=== PATIENT | female | born 1945 | race Caucasian/White ===

== ENCOUNTER 2020-01-09 08:44 | Emergency (ER) | payer MEDICARE, OTHER, SELFPAY ==
[2020-01-09 08:50] VITALS: BP 97/68; PULSE 86; RESP 18; TEMP 36.6; O2SAT 98
[2020-01-09] MEDS: LIDOCAINE HCL 1% LOCAL INJ 20 ML VIAL (09:03)
[2020-01-09] MEDS: TETANUS,DIPHTHERIA,AC PERTUSSIS ADULT 0.5 ML (ADACEL) IM (09:12)
[2020-01-09] MEDS: NEOMYCIN/POLYMYXIN/BACITRACIN OINTMENT PACKET 3 PACKET (09:30)
--- NOTE | 2020-01-09 09:38 | ED.WOUNDLAC ---
HPI - Wound/Laceration General Chief Complaint: Wound/Laceration Stated Complaint: Cut Leg Source: patient Mode of arrival: ambulatory Limitations: no limitations History of Present Illness HPI narrative: this is a 74-year-old female that presents with a U shaped laceration on her anterior surface of her right lower leg that occurred earlier this morning when she fell and hit her leg for feeding her box turtles the area is approximately 25cm in length that is U shaped it is gaping but has a good pedal pulse with some no nerves or tendons exposed has good range of motion in her lower foot with no numbness or tingling and can wiggle her toes and her leg. Onset (ago): hour(s) Extremity Location: Right: lower leg ( Laceration) Body four view annotation: 1. U shaped laceration 25cm and gaping Context: accidental Associated symptoms: pain Treatments prior to arrival: bandage Related Data Allergies Allergy/AdvReac Type Severity Reaction Status Date / Time No Known Allergies Allergy Verified 01/09/20 08:54 Review of Systems Review of Systems: All systems reviewed & are unremarkable except as noted in HPI and below [facility] Past Medical History Medical History Patient denies medical problems Exam Const: General: no acute distress and alert Orientation/consciousness: patient oriented x3 HENMT: Head: normal to inspection Eyes: Conjunctivae: conjunctivae normal Pupils: Equal, round and reactive pupils present Neck: Neck: normal visual inspection Chest: Chest palpation & inspection: normal inspection of the chest Resp: Effort & Inspection: normal respiratory effort Auscultation: clear to auscultation bilaterally Cardio: Rate: regular rate Rhythm: regular rhythm GI: GI Palp: Yes Soft to palpation Skin: Wounds: wounds noted ( right lower anterior leg with a U shaped laceration) Neuro: General: patient oriented x3 and moves all extremities Extrem: General: normal to inspection Psych: Mental Status: mental status grossly normal Course Course Emergency Course: patient informed of procedure with some lidocaine administered the area was prepped and cleaned and there was a 25cm you shaped laceration was gaping used sutures to close the the laceration patient tolerated procedure well 1% lidocaine was administered and patient had minimal amount of pain and minimal amount of bleeding. Vital Signs Vital signs: Vital Signs Temperature 36.6 C 01/09/20 08:50 Pulse Rate 86 01/09/20 08:50 Respiratory Rate 18 01/09/20 08:50 Blood Pressure 97/68 L 01/09/20 08:50 Pulse Oximetry 98 01/09/20 08:50 Temperature 36.6 C 01/09/20 08:50 Pulse Rate 86 01/09/20 08:50 Respiratory Rate 18 01/09/20 08:50 Blood Pressure 97/68 L 01/09/20 08:50 Pulse Oximetry 98 01/09/20 08:50 Procedures Laceration Laceration 1: Date: 01/09/20 Time: 09:43 Site: lower extremity Side (If applicable): right Size (cm): 25 Description: other (U shaped) Depth: simple, single layer Local Anesthetic: lidocaine 1% Amount of anesthesia used (mL): 10 Pre-repair: wound explored and irrigated extensively ====== Skin Level ====== Skin layer closed with: vicryl Size (cm): 3-0 Number of sutures: 28 Technique: simple, interrupted ====== Subcutaneous Layer ====== ====== Muscle Layer ====== ====== Tendon Layer ====== Critical Care Time Critical Care Time Critical Care Time: No Discharge Plan Discharge Clinical Impression: Laceration Patient Disposition: Home, Self-Care Condition: Stable Instructions: Antibiotic Form, Care For Your Stitches (ED), Laceration (ED) Additional Instructions: Follow-up with primary care physician for suture removal in 10 days, take medicine as prescribed. Prescriptions: New amoxicillin-pot clavulanate [
[2020-01-09 09:47] VITALS: BP 132/78; PULSE 82; RESP 18; TEMP 36.6; O2SAT 99
== END 2020-01-09 09:52 | disposition home or self-care (01) ==
PROVIDERS: Emergency Provider Emergency Medicine
DX: S81.811A Laceration without foreign body, right lower leg, initial encounter (principal); W19.XXXA Unspecified fall, initial encounter
CPT/HCPCS: 12006; 90471; 90715; 99282; 99283

== ENCOUNTER 2020-05-02 07:16 | Outpatient (CLI) | payer MEDICARE, OTHER, SELFPAY ==
--- NOTE | ~2020-05-02 | MM_ITS ---
EXAMINATION: MM screening makenzie BI w hetal HISTORY: Screening TECHNIQUE: Craniocaudal and mediolateral oblique 3-D tomosynthesis images were obtained and synthetic 2-D images were generated. CAD analysis was submitted and interpreted. COMPARISON: Comparison to multiple prior studies sequentially, with oldest reviewed study dated 07/2017. BREAST PARENCHYMAL COMPOSITION: There are scattered areas of fibroglandular density. FINDINGS: There is no evidence of suspicious mass, calcification, or architectural distortion to sugg est malignancy in either breast. There has been no suspicious interval change. IMPRESSION: 1. No mammographic evidence of malignancy. 2. Recommend routine screening mammography in one year. BI-RADS Category 1: Negative Reviewed, dictated and finalized at location A. OCK MAKER
[2020-05-02 08:09] LABS: Alanine Aminotransferase 24 U/L (14-59); Alkaline Phosphatase 84 U/L (46-116); Anion Gap 10 mmol/L (8-16); Aspartate Amino Transferase 16 U/L (15-37); Bilirubin,Total 0.3 mg/dL (0.00-1.00); Blood Urea Nitrogen 16 mg/dL (7-18); Calcium 8.8 mg/dL (8.5-10.1); Carbon Dioxide 27 mmol/L (21-32); Chloride 106 mmol/L (98-108); Cholesterol 228 mg/dL (0-200); Estimated Glomerular Filt Rate > 60; Glucose 94 mg/dL (70-99); HDL Direct 63 mg/dL (40-60); LDL Cholesterol Calculated 147 mg/dL (<130); Osmolality Calculated 297 mOsm/kg (285-295); Potassium 4.4 mmol/L (3.5-5.1); Sodium 143 mmol/L (136-145); Total Protein 7.1 g/dL (6.4-8.2); Triglycerides 90 mg/dL (0-150)
== END 2020-05-02 07:17 | disposition home or self-care (01) ==
PROVIDERS: PCP Family Medicine; Visit Provider Family Medicine
DX: Z12.31 Encounter for screening mammogram for malignant neoplasm of breast (principal); E78.2 Mixed hyperlipidemia
CPT/HCPCS: 36415; 77063; 77067; 80053; 80061

== ENCOUNTER 2021-05-08 07:18 | Outpatient (CLI) | payer MEDICARE, OTHER, SELFPAY ==
--- NOTE | ~2021-05-08 | MM_ITS ---
EXAMINATION: MM screening makenzie BI w hetal HISTORY: Screening mammogram TECHNIQUE: Craniocaudal and mediolateral oblique 3-D tomosynthesis images were obtained and synthetic 2-D images were generated. CAD analysis was submitted and interpreted. COMPARISON: 05/02/2020, 03/2019, 03/31/2018 bilateral screening mammogram examinations BREAST PARENCHYMAL COMPOSITION: There are scattered areas of fibroglandular density. FINDINGS: There is no evidence of suspicious mass, calcification, or architectural distortion to sugg est malignancy in either breast. There has been no suspicious interval change. IMPRESSION: 1. No mammographic evidence of malignancy. 2. Recommend routine screening mammography in one year. BI-RADS Category 1: Negative Reviewed, dictated and finalized at location A. AN BPM DEVELOPER
== END 2021-05-08 07:19 | disposition home or self-care (01) ==
LOC: CHSIMG 07:19
PROVIDERS: PCP Family Medicine; Visit Provider Family Medicine
DX: Z12.31 Encounter for screening mammogram for malignant neoplasm of breast (principal)
CPT/HCPCS: 77063; 77067

== ENCOUNTER 2021-06-05 07:33 | Outpatient (CLI) | payer MEDICARE, SELFPAY ==
[2021-06-05 09:02] LABS: Alanine Aminotransferase 20 U/L (14-59); Albumin Level 3.9 g/dL (3.4-5.0); Alkaline Phosphatase 87 U/L (46-116); Anion Gap 8 mmol/L (8-16); Aspartate Amino Transferase 14 U/L (15-37); Bilirubin,Total 0.4 mg/dL (0.00-1.00); Blood Urea Nitrogen 15 mg/dL (7-18); Calcium 8.9 mg/dL (8.5-10.1); Carbon Dioxide 30 mmol/L (21-32); Chloride 105 mmol/L (98-108); Cholesterol 156 mg/dL (0-200); Estimated Glomerular Filt Rate > 60; Glucose 94 mg/dL (70-99); HDL Direct 63 mg/dL (40-60); LDL Cholesterol Calculated 79 mg/dL (<130); Osmolality Calculated 296 mOsm/kg (285-295); Potassium 4.6 mmol/L (3.5-5.1); Sodium 143 mmol/L (136-145); Total Protein 7.2 g/dL (6.4-8.2); Triglycerides 70 mg/dL (0-150)
== END 2021-06-05 07:34 | disposition home or self-care (01) ==
LOC: CHSLAB 07:36
PROVIDERS: PCP Family Medicine; Visit Provider Family Medicine
DX: E78.2 Mixed hyperlipidemia (principal)
CPT/HCPCS: 36415; 80053; 80061

== ENCOUNTER 2022-05-15 07:57 | Outpatient (CLI) | payer MEDICARE, OTHER, SELFPAY ==
--- NOTE | ~2022-05-15 | MM_ITS ---
EXAMINATION: MM screening makenzie BI w hetal HISTORY: Screening TECHNIQUE: Craniocaudal and mediolateral oblique 3-D tomosynthesis images were obtained and synthetic 2-D images were generated. CAD analysis was submitted and interpreted. COMPARISON: Comparison to multiple prior studies sequentially, with oldest reviewed study dated 07/2017. BREAST PARENCHYMAL COMPOSITION: There are scattered areas of fibroglandular density. FINDINGS: There is no evidence of suspicious mass, calcification, or architectural distortion to sugg est malignancy in either breast. There has been no suspicious interval change. IMPRESSION: 1. No mammographic evidence of malignancy. 2. Recommend routine screening mammography in one year. BI-RADS Category 1: Negative Reviewed, dictated and finalized at location A. Y BLENDER
== END 2022-05-15 07:58 | disposition home or self-care (01) ==
LOC: CHSIMG 07:58
PROVIDERS: PCP Family Medicine; Visit Provider Family Medicine
DX: Z12.31 Encounter for screening mammogram for malignant neoplasm of breast (principal)
CPT/HCPCS: 77063; 77067

== ENCOUNTER 2022-06-08 07:31 | Outpatient (CLI) | payer MEDICARE, SELFPAY ==
[2022-06-08 08:16] LABS: Alanine Aminotransferase 19 U/L (14-59); Albumin Level 3.9 g/dL (3.4-5.0); Alkaline Phosphatase 71 U/L (46-116); Anion Gap 5 mmol/L (8-16); Aspartate Amino Transferase 13 U/L (15-37); Bilirubin,Total 0.5 mg/dL (0.00-1.00); Blood Urea Nitrogen 17 mg/dL (7-18); Calcium 8.5 mg/dL (8.5-10.1); Carbon Dioxide 31 mmol/L (21-32); Chloride 110 mmol/L (98-108); Cholesterol 152 mg/dL (0-200); Estimated Glomerular Filt Rate > 60; Glucose 91 mg/dL (70-99); HDL Direct 70 mg/dL (40-60); LDL Cholesterol Calculated 70 mg/dL (<130); Osmolality Calculated 303 mOsm/kg (285-295); Potassium 4.6 mmol/L (3.5-5.1); Sodium 146 mmol/L (136-145); Total Protein 6.8 g/dL (6.4-8.2); Triglycerides 60 mg/dL (0-150)
== END 2022-06-08 07:32 | disposition home or self-care (01) ==
LOC: CHSLAB 07:33
PROVIDERS: PCP Family Medicine; Visit Provider Family Medicine
DX: E78.2 Mixed hyperlipidemia (principal)
CPT/HCPCS: 36415; 80053; 80061

== ENCOUNTER 2023-08-14 07:26 | Outpatient (CLI) | payer MEDICARE, SELFPAY ==
[2023-08-14 08:26] LABS: Alanine Aminotransferase 23 U/L (14-59); Albumin Level 3.9 g/dL (3.4-5.0); Alkaline Phosphatase 67 U/L (46-116); Anion Gap 9 mmol/L (8-16); Aspartate Amino Transferase 12 U/L (15-37); Bilirubin,Total 0.5 mg/dL (0.00-1.00); Blood Urea Nitrogen 15 mg/dL (7-18); Calcium 8.5 mg/dL (8.5-10.1); Carbon Dioxide 28 mmol/L (21-32); Chloride 104 mmol/L (98-108); Cholesterol 150 mg/dL (0-200); Estimated Glomerular Filt Rate > 60; Glucose 92 mg/dL (70-99); HDL Direct 69 mg/dL (40-60); LDL Cholesterol Calculated 70 mg/dL (<130); Osmolality Calculated 292 mOsm/kg (285-295); Potassium 4.1 mmol/L (3.5-5.1); Sodium 141 mmol/L (136-145); Total Protein 6.9 g/dL (6.4-8.2); Triglycerides 54 mg/dL (0-150)
== END 2023-08-14 07:27 | disposition home or self-care (01) ==
LOC: CHSLAB 07:29
PROVIDERS: PCP Family Medicine; Visit Provider Family Medicine
DX: E78.2 Mixed hyperlipidemia (principal)
CPT/HCPCS: 36415; 80053; 80061

== ENCOUNTER 2023-08-30 07:52 | Outpatient (CLI) | payer MEDICARE, OTHER, SELFPAY ==
--- NOTE | ~2023-08-30 | MM_ITS ---
EXAMINATION: MM screening makenzie BI w hetal HISTORY: Screening TECHNIQUE: Craniocaudal and mediolateral oblique 3-D tomosynthesis images were obtained and synthetic 2-D images were generated. CAD analysis was submitted and interpreted. COMPARISON: Comparison to multiple prior studies sequentially, with oldest reviewed study dated 07/2017. BREAST PARENCHYMAL COMPOSITION: Not dense: There are scattered areas of fibroglandular density. FINDINGS: There is no evidence of suspicious mass, calcification, or architectural distortion to sugg est malignancy in either breast. There has been no suspicious interval change. IMPRESSION: 1. No mammographic evidence of malignancy. 2. Recommend routine screening mammography in one year. BI-RADS Category 1: Negative Reviewed, dictated and finalized at location A. R BLENDER
== END 2023-08-30 07:53 | disposition home or self-care (01) ==
LOC: CHSIMG 07:54
PROVIDERS: PCP Family Medicine; Visit Provider Family Medicine
DX: Z12.31 Encounter for screening mammogram for malignant neoplasm of breast (principal)
CPT/HCPCS: 77063; 77067

== ENCOUNTER 2024-09-29 08:09 | Outpatient (CLI) | payer MEDICARE, OTHER, SELFPAY ==
--- NOTE | ~2024-09-29 | MM_ITS ---
EXAMINATION: MM screening makenzie BI w hetal HISTORY: Screening TECHNIQUE: Craniocaudal and mediolateral oblique 3-D tomosynthesis images were obtained and synthetic 2-D images were generated. CAD analysis was submitted and interpreted. COMPARISON: Comparison to multiple prior studies sequentially, with oldest reviewed study dated 07/2017. BREAST PARENCHYMAL COMPOSITION: Dense: The breasts are heterogeneously dense, which may obscure small masses FINDINGS: There is no evidence of suspicious mass, calcification, or architectural distortion to sugg est malignancy in either breast. There has been no suspicious interval change. IMPRESSION: 1. No mammographic evidence of malignancy. 2. Recommend routine screening mammography in one year. BI-RADS Category 1: Negative Reviewed, dictated and finalized at location A.
--- NOTE | ~2024-09-29 | DEXA_ITS ---
Bone Density Report Name: BLANK FORD Age: 78 Sex: Female Ethnicity: White Date of : 1945 Indication: postmenopausal; screening for osteoporosis; height loss; prior fracture; Referring Provider: KAREN BRAGG Study: Bone densitometry was performed. Exam Date: September 29, 2024 Accession number: [id number] Bone Density: Region BMD T-score Z-score Classification AP Spine(L1-L4) 0.949 -0.9 1.7 Normal Femoral Neck (Right) 0.524 -2.9 -0.7 Osteoporosis Total Hip (Right) 0.760 -1.5 0.5 Osteopenia World Health Organization criteria for BMD impression classify patients as: Normal (T-score at or above -1.0), Osteopenia (T-score between -1.0 and -2.5), or Osteoporosis (T-score at or below -2.5). 10-year Fracture Risk: FRAX not reported because: Some T-score for Spine Total or Hip Total or Femoral Neck at or below -2.5 Prior hip or vertebral fracture Clinical Information Provided by Patient: Have had a previous hip or vertebral fracture Has had a low trauma fracture Has used the following medications: Vitamin D, Calcium Patient maximum height was 64 Menopause Age: 50 No regular weight bearing exercise Onset of menses at age 14 Number of children 3 Impression: The patient has established osteoporosis, based on the Right Femoral Neck T-score and the existence of a prior fracture. The patient has risk factors, including: previous fracture. Discussion: HIGH RISK OF FRACTURE. BONE DENSITY IS UNDESIRABLY LOW AT ONE OR MORE SKELETAL SITES, CONSISTENT WITH POSTMENOPAUSAL OSTEOPOROSIS. This patient's lowest T-score, in a patient who has previously fractured, meets the World Health Organization's (WHO) criteria for severe osteoporosis. In untreated patients, the risk of osteoporotic fracture increases approximately two-fold for each 1.0 SD decrease in T-score. Low bone density is not the only risk factor for fracture; also consider factors such as patient's age, frailty or poor health, risk of falling, risk of injury, previous osteoporotic fracture, family history of osteoporosis, cigarette smoking, low body weight, etc. Not everyone with low bone mineral density has osteoporosis; osteomalacia and other metabolic bone disorders should also be considered. Patients who have osteoporosis should be evaluated for specific diseases and conditions (secondary causes) that may cause or contribute to bone loss. The [place] [employer] Clinical Endocrinologists (AACE) and National Osteoporosis Foundation (NOF) recommend pharmacologic intervention for all postmenopausal women with a previous hip or vertebral fracture and a T-score in this range. The patient should follow a healthful lifestyle (good nutrition with adequate calcium and vitamin D, and appropriate weight-bearing exercise). Follow-Up: Consider a repeat BMD and Vertebral Fracture Assessment (VFA) exam in 2 years or sooner if medically necessary, to reassess this patient's status. Reported by: CYDNEY on 09/29/2024 8:50:00 AM. Reviewed, dictated and finalized at location A.
--- OUTSIDE RECORDS SUMMARY | 2024-09-29 08:13 | XMS_ITS | Encounter Summary ---
Author Organization [facility] Address [address] [place] [address] Phone Care Team Providers Care Resources Representative Name Role Phone Magdiel Shannon MD Primary Care Provider [phone] Encounter Details Date Type Department Care Team (Late st Contact Info) Description 06/22/2024 Lab Requisition [facility] [address] [place] [id number] Fran Gordon MD [address] [place] [address] Unspecified osteoarthritis, unspecified site Social History Tobacco Use Types Packs/Day Years Used Date Smoking Tobacco: Never Smokeless Tobacco: Never Alcohol Use Standard Drinks/Week Comments Yes 1 (1 standard drink = 0.6 oz pur e alcohol) Occasional glass of wine [facility] Utilities Answer Date Recorded In the past 12 months has [employer], gas, oil, or water [employer] threatened to shut off services in your home? No 06/09/2024 Social Connection and Isolat ion Panel [NHANES] Answer Date Recorded In a typical week, how many times do you talk on the phone with family, friends, or neighbors? More than three times a week 06/09/2024 How often do you get togethe r with friends or relatives? Twice a week 06/09/2024 How often do you attend [facility] or nondenominational services? More than 4 times per year 06/09/2024 Do you belong to any clubs o r organizations such as sikhism groups, unions, fraternal or athletic groups, or school groups? No 06/09/2024 How often do you attend meet ings of the clubs or organizations you belong to? Never 06/09/2024 Are you , , di vorced, , never , or living with a partner? 06/09/2024 AUDIT-C Answer Date Recorded Q1: How often do you have a drink containing alc ohol? Monthly or less 06/09/2024 Q2: How many drinks containi ng alcohol do you have on a typical day when you are drinking? 1 or 2 06/09/2024 Q3: How often do you have si x or more drinks on one occasion? Never 06/09/2024 Overall Financial Resource Strain (CARDIA) Answe r Date Recorded How hard is it for you to pa y for the very basics like food, housing, medical care, and heating? Not hard at all 06/09/2024 [facility] Occup[facility] ional [facility] - Occupational Stress Questionnaire Answer Date Recorded Do you feel stress - tense, restless, nervous, or anxious, or unable to sleep at night because your mind is troubled all the time - these days? Not at all 06/09/2024 Exercise Vital Sign Answer Date Recorde d On average, how many days pe r week do you engage in moderate to strenuous exercise (like a brisk walk)? 7 days 06/09/2024 On average, how many minutes do you engage in exercise at this level? 60 min 06/09/2024 Hunger Vital Sign Answer Date Recorded Within the past 12 months, y ou worried that your food would run out before you got the money to buy more. Never true 06/09/20 24 Within the past 12 months, t he food you bought just didn't last and you didn't have money to get more. Never true 06/09/2024 PRAPARE - Transportation Answer Date Re corded In the past 12 months, has l ack of transportation kept you from medical appointments or from getting medications? No 05/31 In the past 12 months, has l ack of transportation kept you from meetings, work, or from getting things needed for daily living? No 06/09/2024 Housing Stability Vital Sign Answer Connor e Recorded In the last 12 months, was t here a time when you were not able to pay the mortgage or rent on time? No 06/09/2024 In the past 12 months, how m any times have you moved where you were living? 1 06/09/2024 At any time in the past 12 m [facility], were you homeless or living in a senior living (including now)? No 06/09/2024 Sexually Active Control Partners Comments Not Currently Male Comments No Sex and Gender Information Value Date Recorded Sex Assigned at Not on file Legal Sex Female 10:11 PM CDT Gender Identity Not on file Sexual Orientation Not on file documented as of this encounter Plan of Treatment Not on file documented as of this encounter Procedures Procedure Name Priority Date/Time Associated Diagnosis Comments IRON,TRANSFERN,CALC.T IBC,%SAT Routine 06/22/2024 9:35 AM MANAGER PUBLISHING Unspecified osteoarthritis, unspecified site CBC WITH AUTO DIFFERENTIAL Routine 06/22/2024 9:35 AM MANAGER PUBLISHING Unspecified osteoarthritis, unspecified site VITAMIN B12 Routine 06/22/2024 9:35 AM MANAGER PUBLISHING Unspecified osteoarthritis, unspecified site RETICULOCYTE COUNT (RETIC) Routine 06/22/2024 9:35 AM MANAGER PUBLISHING Unspecified osteoarthritis, unspecified site FOLIC ACID (FOLATE) Routine 06/22/2024 9 :35 AM MANAGER PUBLISHING Unspecified osteoarthritis, unspecified site FERRITIN Routine 06/22/2024 9:35 AM MANAGER PUBLISHING Unspecified osteoarthritis, unspecified site COMPLETE BLOOD COUNT (CBC) WITH DIFF Routine 06/22/2024 9:35 AM MANAGER PUBLISHING Unspecified osteoarthritis, unspecified site documented in this encounter Results * (ABNORMAL) IRON,TRANSFERN,CALC.TIBC,%SAT (06/22/2024 9:35 AM MANAGER PUBLISHING) IRON 46 25 - 156 mcg/dL 06/22/2024 3:17 PM MANAGER PUBLISHING [facility] TRANSFERRIN 156(L) 173 - 360 mg/dL 06/22/2024 3:17 PM MANAGER PUBLISHING [facility] TIBC, CALCULATED 195(L) 265 - 497 mcg/dL 06/22/2024 3:17 PM [facility] % SATURATION * 24 15 - 62 % 06/22/2024 3:17 PM [facility] Blood No Phlebotomy Charged / Unknown 06/22/2024 9:35 AM MANAGER PUBLISHING 06/22/2024 11:55 AM MANAGER PUBLISHING us Frna Gordon MD CHEMISTRY ORDERABLES Final Resul t [facility] [place] [address] * (ABNORMAL) CBC WITH AUTO DIFFERENTIAL (06/22/2024 9:35 AM MANAGER PUBLISHING) WBC 10.97 4.00 - 12.00 10(3)/mcL 06/22/2024 11:58 AM [facility] RBC 2.58(L) 3.80 - 5.30 10(6)/mcL 06/22/2024 11:58 AM [facility] HEMOGLOBIN (HGB) 8.0(L) 12.0 - 15.8 g/dL 06/22/2024 11:58 AM [facility] HEMATOCRIT (HCT) 24.9(L) 36.0 - 47.0 % 06/22/2024 11:58 AM [facility] MCV 96.5(H) 82.0 - 96.0 fL 06/22/2024 11:58 AM [facility] MCH 31.0 26.0 - 34.0 pg 06/22/2024 11:58 AM [facility] MCHC 32.1 31.0 - 36.0 g/dL 06/22/2024 11:58 AM [facility] PLATELET COUNT 661(H) 140 - 440 10(3)/mcL 06/22/2024 11:58 AM [facility] RDW 16.8(H) 11.8 - 15.5 % 06/22/2024 11:58 AM [facility] MPV 8.7(L) 9.7 - 12.4 fL 06/22/2024 11:58 AM [facility] NEUTROPHILS 67.8 47.0 - 73.0 % 06/22/2024 11:58 AM [facility] LYMPHOCYTES 19.0 18.0 - 42.0 % 06/22/2024 11:58 AM [facility] MONOCYTES 8.5 4.0 - 12.0 % 06/22/2024 11:58 AM [facility] EOSINOPHILS 4.1 0.0 - 5.0 % 06/22/2024 11:58 AM [facility] BASOPHILS 0.6 0.0 - 1.0 % 06/22/2024 11:58 AM [facility] ABSOLUTE NEUTROPHILS 7.44 1.60 - 7.70 10(3)/[facility] 06/22/2024 11:58 AM [facility] ABSOLUTE LYMPHOCYTES 2.08 1.30 - 3.20 10(3)/[facility] 06/22/2024 11:58 AM [facility] ABSOLUTE MONOCYTES 0.93 0.20 - 1.00 10(3)/[facility] 06/22/2024 11:58 AM [facility] ABSOLUTE EOSINOPHIL 0.45(H) 0.00 - 0.40 10(3)/[facility] 06/22/2024 11:58 AM [facility] ABSOLUTE BASOPHILS 0.07 0.00 - 0.10 10(3)/[facility] 06/22/2024 11:58 AM [facility] NRBC PER 100 WBC 0 06/22/20 11:58 AM [facility] Blood No Phlebotomy Charged / Unknown 06/22/2024 9:35 AM [facility] 06/22/2024 11:55 AM [facility] us Fran Gordon MD HEMATOLOGY ORDERABLES Final Resu lt Performing Organization Address [facility] Co de Phone Number [facility] [place] [address] * (ABNORMAL) RETICULOCYTE COUNT (RETIC) (06/22/2024 9:35 AM MANAGER PUBLISHING) RETICULOCYTES 7.4(H) 0.5 - 2.0 % 06/22/2024 11:58 AM MANAGER PUBLISHING [facility] Blood No Phlebotomy Charged / Unknown 06/22/2024 9:35 AM MANAGER PUBLISHING 06/22/2024 11:55 AM MANAGER PUBLISHING us Fran Gordon MD HEMATOLOGY ORDERABLES Final Resu lt Performing Organization Address [facility] Co de Phone Number [facility] [address] [place] [address] * FOLIC ACID (FOLATE) (06/22/2024 9:35 AM MANAGER PUBLISHING) FOLATE 14.9 7.0 - 31.4 ng/mL 06/22/2024 12:53 PM MANAGER PUBLISHING [facility] Blood No Phlebotomy Charged / Unknown 06/22/2024 9:35 AM MANAGER PUBLISHING 06/22/2024 11:55 AM MANAGER PUBLISHING us Fran Gordon MD CHEMISTRY ORDERABLES Final Resul t Performing Organization Address [facility] Co de Phone Number [facility] [address] [place] [address] * (ABNORMAL) VITAMIN B12 (06/22/2024 9:35 AM MANAGER PUBLISHING) VITAMIN B12 826(H) 213 - 816 pg/mL 06/22/2024 12:53 PM MANAGER PUBLISHING [facility] Blood No Phlebotomy Charged / Unknown 06/22/2024 9:35 AM MANAGER PUBLISHING 06/22/2024 11:55 AM MANAGER PUBLISHING us Fran Gordon MD CHEMISTRY ORDERABLES Final Resul t Performing Organization Address [facility]/ZIP Co de Phone Number [facility] [address] [place] [address] * (ABNORMAL) FERRITIN (06/22/2024 9:35 AM MANAGER PUBLISHING) FERRITIN 300(H) 5 - 204 ng/mL 06/22/2024 12:37 PM MANAGER PUBLISHING [facility] Blood No Phlebotomy Charged / Unknown 06/22/2024 9:35 AM MANAGER PUBLISHING 06/22/2024 11:55 AM MANAGER PUBLISHING us Fran Gordon MD CHEMISTRY ORDERABLES Final Resul t Performing Organization Address [facility] Co de Phone Number [facility] [address] [place] [address] documented in this encounter Visit Diagnoses Diagnosis Unspecified osteoarthritis, unspecified site documented in this encounter Care Teams Resources Representative Relationship Specialty Start Date End Date Magdiel Shannon MD [address] [place] [address] PCP - General Family Medicine 06/10/24 documented as of this encounter
--- OUTSIDE RECORDS SUMMARY | 2024-09-29 08:13 | XMS_ITS | Clinical Summary ---
Author Organization [facility] Address [address] [place] [address] Phone Care Team Providers Care Assistant Prosecuting Attorney Name Role Phone Magdiel Shannon MD Primary Care Provider [phone] Allergies No known active allergies Medications atorvastatin (LIPITOR) 10 MG TabletIndicatio ns:Hypertriglyc eridemia Take 10 mg by mouth daily. Indications: High Amount of Triglycerides in the Blood Active Multivitamin-Mi nerals Tablet Take 1 Tablet by mouth daily. Active ALPRAZolam (Xanax) 0.25 MG TabletIndicatio ns:Anxiety Take 0.25 mg by mouth 2 times daily as needed for Anxiety. Indications: Feeling Anxious Active HYDROcodone-sudheer taminophen (NORCO) 5-325 MG TabletIndicatio ns:Moderate to Moderately Severe Pain Take 1 Tablet by mouth every 8 hours as needed for Moderate or more severe pain. Indications: Moderate to Moderately Severe Pain 20 Tablet 4 Active ondansetron (ZOFRAN-ODT) 4 MG TABLET DISPERSIBLE Take 1 Tablet by mouth every 6 hours as needed for Nausea - 1st line. 30 Tablet 4 Active naloxone HCl (Narcan) 4 MG/0.1ML Liquid 1 [place] by Nasal route as needed for Opioid Reversal. Administer in one nostril for symptoms of overdose (severe sleepiness, breathing problems, not responsive). Call 911. May repeat 1 spray in alternate nostril in 2-3 minutes if needed. 2 Each Active docusate sodium (COLACE) 100 MG Capsule Take 100 mg by mouth daily. Active Active Problems Problem Noted Date Diagnosed Date HLD (hyperlipidemia) 06/10/2024 Anxiety 06/10/2024 Arthritis 06/10/2024 Resolved Problems Problem Noted Date Diagnosed Date Resolved Date Leukocytosis (leucocytosis) 06/10/2024 06/12/2024 Closed displaced fracture of left femoral neck 06/10/2024 06/12/2024 Closed fracture of neck of left femur 06/09/2024 06/12/2024 Encounters Date Type Department Care Team Description 07/27/2024 9:30 AM TRAVEL OCCUPATIONAL THERAPIST Home Care Visit [address] [address] Nubia Pino, PT PT - OASIS DISCHARGE 07/25/2024 Home Care Visit [address] [address] Flakita Forman, RN CASE COMMUNICATION 07/24/2024 Home Care Visit [address] [address] Joaquina Le, OT OT - DISCHARGE SUMMARY 07/20/2024 9:30 AM TRAVEL OCCUPATIONAL THERAPIST Home Care Visit [address] [address] Cindy Benito, DISPLAY MAKER PT - HOME VISIT 07/20/2024 Travel 07/16/2024 9:30 AM TRAVEL OCCUPATIONAL THERAPIST Home Care Visit [address] [address] Cindy Benito, DISPLAY MAKER PT - HOME VISIT 07/16/2024 Travel 07/13/2024 11:00 AM TRAVEL OCCUPATIONAL THERAPIST Home Care Visit [address] [address] Nubia Pino, PT PT - REASSESSMENT 07/07/2024 1:00 PM TRAVEL OCCUPATIONAL THERAPIST Home Care Visit [address] [address] Cindy Benito, DISPLAY MAKER PT - HOME VISIT 07/07/2024 Travel 07/03/2024 2:30 PM TRAVEL OCCUPATIONAL THERAPIST [facility] [address] [place] [address] Geraldine Dixon OTA OT - DISCIPLINE DISCHARGE 07/03/2024 Travel 07/02/2024 9:00 AM TRAVEL OCCUPATIONAL THERAPIST [facility] [address] [place] [address] Cindy Benito PTA PT - HOME VISIT from Last 3 Months Family History Medical History Relation Name Comments Cancer Mother Cancer Paternal Grandfather Relation Name Status Comments Father Mother Paternal Grandfather Social History Tobacco Use Types Packs/Day Years Used Date Smoking Tobacco: Never Smokeless Tobacco: Never Tobacco Cessation:Counseling Given: No Alcohol Use Standard Drinks/Week Comments Yes 1 (1 standard drink = 0.6 oz pur e alcohol) Occasional glass of wine [facility] [employer] Answer Date Recorded In the past 12 months has th e electric, gas, oil, or water company threatened to shut off services in your [...] week 06/09/2024 How often do you attend chur ch or temple services? More than 4 times per year 06/09/2024 Do you belong to any clubs o r organizations such as hindu groups, unions, fraternal or athletic groups, or [...] and heating? Not hard at all 06/09/2024 [facility] of Occupat ional Health - Occupational Stress Questionnaire Answer Date Recorded [...] any time in the past 12 m [facility], were you homeless or living in a penitentiary (including now)? No 06/09/2024 Sexually Active Control Partners Comments Not Currently Male Comments No Sex and Gender Information Value Date Recorded Sex Assigned at Not on file Legal Sex Female 10:11 PM CDT Gender Identity Not on file Sexual Orientation Not on file Last Filed Vital Signs Vital Sign Reading Time Taken Comments Blood Pressure 124/76 07/27/2024 9:50 AM TRAVEL OCCUPATIONAL THERAPIST Pulse 88 07/27/2024 9:50 AM TRAVEL OCCUPATIONAL THERAPIST Temperature 36.7 C (98.1 F) 07/27/2024 9:50 AM TRAVEL OCCUPATIONAL THERAPIST Respiratory Rate 16 07/27/2024 9:50 AM TRAVEL OCCUPATIONAL THERAPIST Oxygen Saturation 98% 07/27/2024 9:50 AM TRAVEL OCCUPATIONAL THERAPIST Inhaled Oxygen Concentration - - Weight 72.6 kg (160 lb) 06/15/2024 2:58 PM TRAVEL OCCUPATIONAL THERAPIST Height 160 cm (5' 3 ) 06/16/2024 2:00 PM TRAVEL OCCUPATIONAL THERAPIST Body Mass Index 28.34 06/09/2024 5:11 PM TRAVEL OCCUPATIONAL THERAPIST Plan of Treatment Health Maintenance Due Date Last Done Comments DEXA Bone Density 1945 Hepatitis C Virus (HCV) Screening 1945 Zoster Immunization (1 of 2) 11/06/1995 Pneumococcal Immunization (50+ years) (2 of 2 - PCV) 04/02/2019 04/02/2018 Respiratory Syncytial Virus (RSV) Immunization (Adult) (1 - 1-dose 75+ series) 2020 Influenza Immunization (#1) 03/01/202408/2022, 06/11/2022, 04/20/2020, Additional history exists SARS-COV-2 Immunization ( season) 2024 04/02/2023, 03/25/2021, 09/09/2020, Additional history exists TdaP Immunization Completed 01/09/2020 Hepatitis B Immunization Aged Out No longer eligible based on patient's age to complete this topic Meningococcal Immunization (ACWY) Aged Out No longer eligible based on patient's age to complete this topic Rotavirus Immunization Aged Out No lo nger eligible based on patient's age to complete this topic Medical Devices Implanted Type Area Pinion Sorter Device Identifier Shelf Expiration Date Model / Serial / Lot Stem Fem 118mm Classic Short Neck Profemur Z Plasma 3 Hip - [id number] Implanted:Qty: 1 on 06/10/2024 by Fran Gordon MD at [facility] IMPLANT Left: Hip [employer] 06/06/2031 [id number] / [id number] / [id number] Implant Hip Acetabular Component Bipolar Gladiator 32 X 47mm - [id number] Implanted:Qty: 1 on 06/10/2024 by Fran Gordon MD at [facility] IMPLANT Left: Hip [employer] 12/01/2027 [id number] / [id number] / [id number] Microport Femoral Head 32mm, Neck Length: +3.5mm Long Implanted:Qty: 1 on 06/10/2024 by Fran Gordon MD at [facility] IMPLANT Left: Hip [employer] 02/14/2032 [id number] / [id number] / [id number] Insurance MEDICARE Member Subscriber Plan / Payer (Ef fective 2010-Present) Name:Roshni Bach Shayla Member ID:[id number] Relation to Subscriber:Self Name:Roshni Bach Shayla Subscriber ID:[id number] Payer ID:[id number] Group ID:Not on file Type:Not on file Address: [facility] [address] [facility], [facility] [place] [address] [facility] Advance Directives * Full Code (Latest Code Status on File) Date Activated Date Inactivated Comments 06/15/2024 10:33 PM * Full Code Date Activated Date Inactivated Comments 06/09/2024 10:25 PM 06/15/2024 10:33 PM CPR-Full Treatment: FULL ARREST: Attempt Resuscitation/CPR wit intubation and mechanical ventilation. PRE-ARREST: Use entire range of life support measures to stabilize the patient. Care Teams Assistant Prosecuting Attorney Relationship Specialty Start Date End Date Magdiel Shannon MD [address] [place] [address] PCP - General Family Medicine 06/10/24
== END 2024-09-29 08:10 | disposition home or self-care (01) ==
PROVIDERS: PCP Family Medicine; Visit Provider Family Medicine
DX: Z12.31 Encounter for screening mammogram for malignant neoplasm of breast (principal); Z78.0 Asymptomatic menopausal state; M81.0 Age-related osteoporosis without current pathological fracture; M85.88 Other specified disorders of bone density and structure, other site
CPT/HCPCS: 77063; 77067; 77080